=== PATIENT | female | born 1985 | race Caucasian/White ===

== ENCOUNTER 2019-12-01 16:11 | Outpatient (REF) | payer BC, SELFPAY ==
[2019-12-01 20:01] LABS: Calculated LDL 106 mg/dL; Cholesterol 187 mg/dL (<200); Glucose 85 mg/dL (74-106); HDL Cholesterol 50 mg/dL (40-60); Triglyceride 156 mg/dL (<150)
== END 2019-12-01 16:31 ==
LOC: NCHCN 16:11
PROVIDERS: PCP Family Medicine; Visit Provider Family Medicine
DX: Z00.00 Encounter for general adult medical examination without abnormal findings (principal); Z13.1 Encounter for screening for diabetes mellitus; Z13.220 Encounter for screening for lipoid disorders
CPT/HCPCS: 80061; 82947

== ENCOUNTER 2019-12-28 09:12 | Outpatient (CLI) | payer BC, SELFPAY ==
--- NOTE | 2019-12-28 14:02 | DI.MAMMO_ITS ---
EXAM: MG MAMMO DIAGNOSTIC BI, US BREAST RT LIMITED AND US BREAST LT LIMITED CLINICAL HISTORY: RT BREAST NODULE TECHNIQUE: Ultrasound performed using standard protocol. COMPARISON: SURVEY*(P) from 10/15/2010 US BREAST LT LIMITED from 12/28/2019 FINDINGS: Bilateral mammogram with an additional spot compression view of the right breast and bilateral breast ultrasound was performed. Mammography shows a well-circumscribed upper-outer quadrant mass of right breast, which measures abou t 3 cm in greatest diameter. This corresponds to a septated cyst seen ultrasonographically in the 9 o'clock position 3 cm from the nipple measuring up to about 2.4 cm in diameter. No other mass identified in the right breast. No mass identified in the left breast mammographically . An area of questionable palpable abnormality of the left breast was interrogated ultrasonographica lly. There is a 7 millimeter in diameter simple cyst corresponding to the palpable abnormality. No ultrasonographically identified solid mass of the left breast. IMPRESSION: No specific evidence of malignancy at this time. Routine screening examinations suggested beginning at age 40 unless there is breast symptomatology in the intervening period. Category 1, breast densit y category C.
== END 2019-12-28 09:32 ==
PROVIDERS: PCP Family Medicine; Visit Provider Family Medicine
DX: N63.11 Unspecified lump in the right breast, upper outer quadrant (principal); N60.01 Solitary cyst of right breast; N60.02 Solitary cyst of left breast
CPT/HCPCS: 76642; 77062; 77066; G0279

== ENCOUNTER 2020-12-19 17:24 | Outpatient (REF) | payer BC, SELFPAY ==
--- NOTE | 2020-12-19 16:00 | PAPFT_PTH ---
PATIENT: Catherine Garcia [facility] U[facility][id number] AGE/SX: 34/F ROOM: RE12/19/[address]: Nona Ruano V : 1985 BED: DIS: 12/19/2020 SPEC #: [id number] RECD: 12/20/20 12:55 STATUS: SHERITA CHAUDHARI #: [id number] CORNEL: 12/19/20 16:[address]: Nona Ruano V DEPT: [facility] Cytology RECD BY: Maura Franklin Tissues: 1 - CX/ENDOCX FOR PAP SMEARS Procedures: PAP THIN PREP/[facility] Screening HPV DNA PROBE Comments: [id number]
== END 2020-12-19 17:44 ==
LOC: NCHCN 17:24
PROVIDERS: PCP Family Medicine; Visit Provider Family Medicine
DX: Z12.4 Encounter for screening for malignant neoplasm of cervix (principal); Z11.51 Encounter for screening for human papillomavirus (HPV); Z01.419 Encounter for gynecological examination (general) (routine) without abnormal findings
CPT/HCPCS: 88142; 87624

== ENCOUNTER → 2024-06-02 00:06 | Outpatient (CLI) | payer BC, SELFPAY ==
--- NOTE | 2024-06-02 | DI.MAMMO_ITS ---
Exam(s) MAMMO SCREENING EXAM: MAMMO SCREENING CLINICAL HISTORY: Screening, Z12.31 TECHNIQUE: Mammograms were interpreted according to the usual protocol including computer analysis w EDUon[employer] CAD system, tomosynthesis and C-view imaging. COMPARISON: 2019 FINDINGS: The breasts are composed of heterogeneously dense fibroglandular densities, Breast Density category C . No suspicious masses or suspicious microcalcifications are seen. No skin thickening or abnormal axillary lymph nodes are seen. Previously noted cyst in the upper outer quadrant of the right breast no longer visible. IMPRESSION: BI-RADS Category 1, Negative mammogram. Yearly screening mammography is recommended. Breast Density Category C, heterogeneously Dense. The mammogram demonstrates the patient's breast tissue is dense. Dense breast tissue is very common a nd is not abnormal but dense breast tissue can make it harder to find cancer on a mammogram. Also, de nse breast tissue may increase breast cancer risk. This information about the result of the mammogram report was provided to the patient to raise their awareness. Use this report when you speak with the patient about their risks for breast cancer, which includes their family history. At that time, you may recommend additional screening tests (Ultrasound or MRI) as they might be useful based on their r isk. A negative radiographic report should not delay biopsy if a dominant or clinically suspicious mass is present. Up to ten percent of cancers are not identified on mammography. A negative report may reinforce clinical impression. Adenosis and dense breasts may obscure an underlying neoplasm. False positive reports average 6 to 10%.
--- OUTSIDE RECORDS SUMMARY | 2024-06-02 00:08 | XMS_ITS | Encounter Summary ---
Author Organization [facility] Address [address] [place] [address] Care Team Providers Care Insurance Advisor Name Role Phone Linda Modi PA-C Primary Care Provider + Encounter Details Date Type Department Care Team (Late st Contact Info) Description 08/12/2010 Results Only [facility] - [facility] ([facility]) [address], [place] [id number] Allan Mathew [address] [place], [place] [address] Social History Tobacco Use Types Packs/Day Years Used Date Smoking Tobacco: Never Assessed Sex and Gender Information Value Date Recorded Sex Assigned at Not on file Gender Identity Not on file Sexual Orientation Not on file documented as of this encounter Plan of Treatment Not on file documented as of this encounter Procedures Procedure Name Priority Date/Time Associated Diagnosis Comments CYTOPATHOLOGY Routine 08/12/2010 0:00 EDT documented in this encounter Results * CYTOPATHOLOGY (08/12/2010 0:00 EDT) Pathology Report: CYTOPATHOLOGY REPORT ? Reports generated via electronic interface contain original data; ? however they are lacking the format of the original report. ? Caution should be taken when reading/interpreti ng unformatted reports. ? Name: ? CAMILA GARCIA ? Accession #: ? [id number] ? : ? 1985 (Age: 24) ??F ?Collect Date: ? 08/12/2010 ? Location: ? [facility] ? Receive Date: ? 08/13/2010 ? Provider: ?ANEA LELONG CNM ? Copy to: ? Specimen/Source: ?Pap Test, Cervix/Endocervix, ThinPrep Imaging System ? with manual evaluation ? Last Menstrual Period: ? 07/19/10 ? Menstrual/Pregnanc y Status: ? Other: ? HPVA - HPV testing requested if ASC-US on the current ThinPrep Pap test. ? SPECIMEN ADEQUACY ? Satisfactory for Evaluation ? - transformation zone component present ? - scant squamous epithelial component secondary to excessive blood ? GENERAL CATEGORIZATION ? Negative for Intraepithelial Lesion or Malignancy ? Document reviewed and electronically signed by: ? Angeles Quijanog, CT(ASCP) ? Report Date: ??08/20/2010 12:39 ? End of Report ? [facility] 08/12/2010 08/13/2010 Allan Mathew CNM PATHOLOGY ORDERABLES Performing Organization Address City/State/[facility] Co de Phone Number [facility] [address] [place] [address] documented in this encounter Visit Diagnoses Not on filedocumented in this encounter Care Teams Insurance Advisor Relationship Specialty Start Date End Date Linda Modi, G[employer] [address] [place] [phone] PCP - General 08/13/10 documented as of this encounter
--- OUTSIDE RECORDS SUMMARY | 2024-06-02 00:08 | XMS_ITS | Encounter Summary ---
Author Organization [facility] Address [address] [place] [address] Care Team Providers Care Mine Administrator Supervisor Name Role Phone Anna Johnson PA-C Primary Care Provider + Encounter Details Date Type Department Care Team (Late st Contact Info) Description 06/23/2016 Results Only [facility] [phone] Anna Johnson PA-C [address] [place] [phone] Social History Tobacco Use Types Packs/Day Years Used Date Smoking Tobacco: Never Assessed Sex and Gender Information Value Date Recorded Sex Assigned at Not on file Gender Identity Not on file Sexual Orientation Not on file documented as of this encounter Plan of Treatment Not on file documented as of this encounter Procedures Procedure Name Priority Date/Time Associated Diagnosis Comments PAP TEST- RESULT ONLY Routine 06/23/2016 0:00 EDT documented in this encounter Results * PAP TEST- RESULT ONLY (06/23/2016 0:00 EDT) Pathology Report: CYTOPATHOLOGY REPORT Reports generated via electronic interface contain original data; however they are lacking the format of the original report. Caution should be taken when reading/interpreti ng unformatted reports. Name: ? CAMILA GARCIA ? Accession #: ? [id number] ? : ? 1985 (Age: 30) ??F ?Collect Date: ? 06/23/2016 ? Location: ? [facility] ? Receive Date: ? 06/24/2016 ? Provider: ANNA JOHNSON PA-C Copy to: ? Final Report SPECIMEN ADEQUACY ? Satisfactory for Evaluation - transformation zone component present GENERAL CATEGORIZATION ? Negative for Intraepithelial Lesion or Malignancy ?? Last Menstrual Period: 05/30/2016 Previous Gynecologic Pathology: ASC-US: HX Specimen/Source: ??Pap Test, Cervix/Endocervix, ThinPrep Imaging System with manual evaluation Document reviewed and electronically signed by: ? June Rodas, CT(ASCP)(IAC) ? Report ??Date: 07/01/2016 13:18 HPV with Pap Test ? Date Ordered: ? 07/01/2016 ? Status: ?? Signed Out ?Date Complete: ? 07/03/2016 ? By: ??System Interface ? Date Reported: ? 07/03/2016 ? Interpretation RESULT: Negative for HPV. No E6 or E7 mRNA is detected from HPV types 16,18,31,33,35, 39,45,51,52,56,58, 59,66, and 68 by grounds crew supervisor mediated amplification. Comments Document reviewed and electronically signed by: ? System Interface ? Report date: 07/03/2016 By the signature above, the attending physician certifies that he/she has personally conducted a gross and/or microscopic examination of the described specimens and rendered or confirmed the above diagnosis. End of Report [facility] 06/23/2016 06/24/2016 Anna Johnson PA-C PATHOLOGY [facility] [address] [place] [address] documented in this encounter Visit Diagnoses Not on filedocumented in this encounter Care Teams Mine Administrator Supervisor Relationship Specialty Start Date End Date Anna Johnson PA-C [address] [place] [phone] PCP - General 08/13/10 documented as of this encounter
--- OUTSIDE RECORDS SUMMARY | 2024-06-02 00:08 | XMS_ITS | Encounter Summary ---
Author Organization [facility] Address [address] [place] [address] Care Team Providers Care Linen Supply Load Builder Name Role Phone Linda Modi PA-C Primary Care Provider + Encounter Details Date Type Department Care Team (Late st Contact Info) Description 02/27/2005 Results Only [facility] - [facility] [address] [place] [address] Nona Ruano MD [address] [place], [place] [phone] Social History Tobacco Use Types Packs/Day Years Used Date Smoking Tobacco: Never Assessed Sex and Gender Information Value Date Recorded Sex Assigned at Not on file Gender Identity Not on file Sexual Orientation Not on file documented as of this encounter Plan of Treatment Not on file documented as of this encounter Procedures Procedure Name Priority Date/Time Associated Diagnosis Comments CYTOPATHOLOGY Routine 02/27/2005 0:00 EDT documented in this encounter Results * CYTOPATHOLOGY (02/27/2005 0:00 EDT) Pathology Report: CYTOPATHOLOGY REPORT Reports generated via electronic interface contain original data; however they are lacking the format of the original report. Caution should be taken when reading/interpreti ng unformatted reports. Name: ? CAMILA GARCIA ? Accession #: ? [id number] : ? 1985 (Age: 19) ??F ?Collect Date: ? 02/27/2005 Location: ? [facility] ? Receive Date: ? 03/03/2005 Provider: ?NONA RUANO MD Copy to: ? Specimen/Source: ?ThinPrep Pap Test, Cervix/Endocervix Last Menstrual Period: ? 02/16/05 ? SPECIMEN ADEQUACY ? Satisfactory for Evaluation - transformation zone component present GENERAL CATEGORIZATION ? Negative for Intraepithelial Lesion or Malignancy INTERPRETATION ? Reactive cellular changes associated with inflammation present (includes repair). ? Document reviewed and electronically signed by: ? ANGELINA BONNER MD ? Report Date: ??03/10/2005 13:05 End of Report [facility] 02/27/2005 03/03/2005 Nona Ruano MD PATHOLOGY ORDERABLES Performing Organization Address City/State/[facility] Co de Phone Number [facility] [address] [place] [address] documented in this encounter Visit Diagnoses Not on filedocumented in this encounter Care Teams Linen Supply Load Builder Relationship Specialty Start Date End Date Linda Modi PA-C [address] [place] [phone] PCP - General 08/13/10 documented as of this encounter
--- OUTSIDE RECORDS SUMMARY | 2024-06-02 00:08 | XMS_ITS | Encounter Summary ---
Author Organization [facility] Address [address] [place] [address] Care Team Providers Care Community Development Specialist Name Role Phone Unavailable Primary Care Provider Unavailabl e Encounter Details Date Type Department Care Team (Late st Contact Info) Description 10/20/2007 Results Only [facility] - Maple conversion [address] [place] [address] Blayne Rowan MD [facility] [address] [place], [place] [phone] Social History Tobacco Use Types Packs/Day Years Used Date Smoking Tobacco: Never Assessed Sex and Gender Information Value Date Recorded Sex Assigned at Not on file Gender Identity Not on file Sexual Orientation Not on file documented as of this encounter Plan of Treatment Not on file documented as of this encounter Procedures Procedure Name Priority Date/Time Associated Diagnosis Comments CYTOPATHOLOGY Routine 10/20/2007 0:00 EST documented in this encounter Results * CYTOPATHOLOGY (10/20/2007 0:00 EST) Pathology Report: CYTOPATHOLOGY REPORT Reports generated via electronic interface contain original data; however they are lacking the format of the original report. Caution should be taken when reading/interpreti ng unformatted reports. Name: ? CAMILA DUPONT ? Accession #: ? [id number] : ? 1985 (Age: 21) ??F ?Collect Date: ? 10/20/2007 Location: ? [facility] ? Receive Date: ? 10/21/2007 Provider: ?BLAYNE ROWAN MD Copy to: ? Specimen/Source: ?ThinPrep Pap Test, Cervix/Endocervix, processed on [employer] ThinPrep Imaging System, with manual evaluation Last Menstrual Period: ? 1 wk ago Hormonal/Contracep tive Status: ? Depo-Provera Previous Gynecologic Pathology: ? Yes: 2005 sq cell abnormality undetermine signifance, neg HPV Other: ? HPVA - HPV testing requested if ASC-US on the current ThinPrep Pap test. ? SPECIMEN ADEQUACY ? Satisfactory for Evaluation - transformation zone component present GENERAL CATEGORIZATION ? Negative for Intraepithelial Lesion or Malignancy ? Document reviewed and electronically signed by: ? ENMANUEL Warren(ASCP) ? Report Date: ??10/25/2007 12:18 End of Report [facility] 10/20/2007 10/21/2007 Blayne Rowan MD PATHOLOGY ORDERABLES Performing Organization Address City/State/[facility] Co de Phone Number [facility] [address] [place] [address] documented in this encounter Visit Diagnoses Not on filedocumented in this encounter
--- OUTSIDE RECORDS SUMMARY | 2024-06-02 00:08 | XMS_ITS | Encounter Summary ---
Author Organization [facility] Address [address] [place] [address] Care Team Providers Care Vacation Sales Advisor Name Role Phone Unavailable Primary Care Provider Unavailabl e Encounter Details Date Type Department Care Team (Late st Contact Info) Description 01/11/2003 Results Only [facility] - Maple conversion [address] [place] [address] [facility] [address] [place] [address] [place] [address] Social History Tobacco Use Types Packs/Day Years Used Date Smoking Tobacco: Never Assessed Sex and Gender Information Value Date Recorded Sex Assigned at Not on file Gender Identity Not on file Sexual Orientation Not on file documented as of this encounter Plan of Treatment Not on file documented as of this encounter Procedures Procedure Name Priority Date/Time Associated Diagnosis Comments CYTOPATHOLOGY Routine 01/11/2003 0:00 EST documented in this encounter Results * CYTOPATHOLOGY (01/11/2003 0:00 EST) Pathology Report: CYTOPATHOLOGY REPORT Reports generated via electronic interface contain original data; however they are lacking the format of the original report. Caution should be taken when reading/interpreti ng unformatted reports. Name: ? CAMILA DUPONT ? Accession #: ? [id number] : ? 1985 (Age: 17) ??F ?Collect Date: ? 01/11/2003 Location: ? [facility] ? Receive Date: ? 01/15/2003 Provider: ?PRUDENCE MENEZES SAP PI DEVELOPER Copy to: ? Specimen/Source: ?ThinPrep Pap Test, Cervix/Endocervix Last Menstrual Period: ? Hormonal/Contracep tive Status: ? Depo-Provera ? SPECIMEN ADEQUACY ? Satisfactory for Evaluation - transformation zone component present GENERAL CATEGORIZATION ? Negative for Intraepithelial Lesion or Malignancy ? Document reviewed and electronically signed by: ? ENMANUEL Dooley(ASCP) ? Report Date: ??01/16/2003 14:48 End of Report [facility] 01/11/2003 01/15/2003 Prudence Menezes SAP PI DEVELOPER PATHOLOGY ORDERABLES [facility] [address] [place] [address] documented in this encounter Visit Diagnoses Not on filedocumented in this encounter
--- OUTSIDE RECORDS SUMMARY | 2024-06-02 00:08 | XMS_ITS | Encounter Summary ---
Author Organization [facility] Address [address] [place] [address] Care Team Providers Care Shipping And Receiving Material Handler Name Role Phone Linda Modi PA-C Primary Care Provider + Encounter Details Date Type Department Care Team (Latest Contact Info) Description 12/23/2020 Lab Requisition [facility] Pathology & Laboratory Medicine - [facility] [address] [place] [address] Nona Ruano MD [address] [place], [place] [phone] Encounter for gynecological examination (general) (routine) without abnormal findings Social History Tobacco Use Types Packs/Day Years Used Date Smoking Tobacco: Never Assessed Sex and Gender Information Value Date Recorded Sex Assigned at Not on file Gender Identity Not on file Sexual Orientation Not on file documented as of this encounter Plan of Treatment Not on file documented as of this encounter Procedures Procedure Name Priority Date/Time Associated Diagnosis Comments PAP TEST Today 12/19/2020 16:00 EST Encounter for gynecological examination (general) (routine) without abnormal findings HPV DNA DETECTION WITH GENOTYPING, PCR Today 12/19/2020 16:00 EST Encounter for gynecological examination (general) (routine) without abnormal findings documented in this encounter Results * HUMAN PAPILLOMAVIRUS (HPV) DETECTION-HIGH RISK TYPES (12/19/2020 16:00 EST) HPV other High Risk types, PCR Negative Negative 01/01/2021 15:12 EST [facility] Comment:No E6 or E7 mRNA is detected from HPV types 16,18,31,33,35,39,45,51,52,56,58,59,66, and 68 by swing saw operator mediated amplification. Papanicolaou smear specimen (specimen) CERVIX UTERI STRUCTURE / Unknown 12/19/2020 16:00 EST 12/30/2020 13:05 EST Nona Ruano MD MICROBIOLOGY - GENER AL ORDERABLES [facility] [address] [place] [phone] * PAP TEST (12/19/2020 16:00 EST) Specimens A. Cervix and/or Endocervix , ThinPrep Imaging System with Manual Evaluation 01/01/2021 15:12 [facility] Specimen Adequacy Satisfactory for Evaluation - transformation zone component present 01/01/2021 15:12 [facility] General Categorization Negative for intraepithelial lesion or malignancy 01/01/2021 15:12 [facility] Attestation . 01/01/2021 15:12 [facility] at 1512 Clinical History See below 01/01/20 21 15:12 [facility] HPV The result for the Human Papillomavirus (HPV) Detection-High Risk Types is Negative. No E6 or E7 mRNA is detected from HPV types 16,18,31,33,35,39 ,45,51,52,56,58,5 9,66, and 68 by swing saw operator mediated amplification.Nette ting was performed on specimen [id number] and was resulted on 01/01/2021 1506 EST by JONATHAN, LAB INSTRUMENT RESULTS IN 01/01/2021 15:12 [facility] Performing Lab [facility] 01/01/2021 15:12 [facility] Scanned Images 01/01/2021 15:12 [facility] Papanicolaou smear specimen (specimen) CERVIX UTERI STRUCTURE / Unknown 12/19/2020 16:00 EST 12/23/2020 15:00 EST Nona Ruano MD PATHOLOGY ORDERABLES [facility] [address] [place] [address] documented in this encounter Visit Diagnoses Diagnosis Encounter for gynecological examination (general) (routine) without abnormal findings documented in this encounter Care Teams Shipping And Receiving Material Handler Relationship Specialty Start Date End Date Linda Modi PA-C [address] [place] [phone] PCP - General 08/13/10 documented as of this encounter
--- OUTSIDE RECORDS SUMMARY | 2024-06-02 00:08 | XMS_ITS | Referral Summary ---
Author Organization [facility] Address [address] [place] [address] Care Team Providers Care Cadmium Burner Name Role Phone Linda Modi PA-C Primary Care Provider + Social History Tobacco Use Types Packs/Day Years Used Date Smoking Tobacco: Never Assessed Sex and Gender Information Value Date Recorded Sex Assigned at Not on file Gender Identity Not on file Sexual Orientation Not on file Plan of Treatment Not on file Care Teams Cadmium Burner Relationship Specialty Start Date End Date Linda Modi PA-C [address] [place] [phone] PCP - General 08/13/10
--- OUTSIDE RECORDS SUMMARY | 2024-06-02 00:08 | XMS_ITS | Encounter Summary ---
Author Organization [facility] Address [address] [place] [address] Care Team Providers Care Product Analyst Name Role Phone Unavailable Primary Care Provider Unavailabl e Encounter Details Date Type Department Care Team (Late st Contact Info) Description 09/09/2006 Results Only [facility] - Maple conversion [address] [place] [address] Nona Ruano MD [address] [place], [place] [phone] Social History Tobacco Use Types Packs/Day Years Used Date Smoking Tobacco: Never Assessed Sex and Gender Information Value Date Recorded Sex Assigned at Not on file Gender Identity Not on file Sexual Orientation Not on file documented as of this encounter Plan of Treatment Not on file documented as of this encounter Procedures Procedure Name Priority Date/Time Associated Diagnosis Comments CYTOPATHOLOGY Routine 09/09/2006 0:00 EDT documented in this encounter Results * CYTOPATHOLOGY (09/09/2006 0:00 EDT) Pathology Report: CYTOPATHOLOGY REPORT Reports generated via electronic interface contain original data; however they are lacking the format of the original report. Caution should be taken when reading/interpreti ng unformatted reports. Name: ? CAMILA DUPONT ? Accession #: ? [id number] : ? 1985 (Age: 20) ??F ?Collect Date: ? 09/09/2006 Location: ? [facility] ? Receive Date: ? 09/13/2006 Provider: ?NONA RUANO MD Copy to: ? Specimen/Source: ?ThinPrep Pap Test, Cervix/Endocervix, processed on [employer] ThinPrep Imaging System, with manual evaluation Last Menstrual Period: ? 05/10/06 Menstrual/Pregnanc y Status: ? Other: ? Additional clinical information: 03/17/06 sq cell abnormality, atypical sq cell undetermined sign neg HPV ? SPECIMEN ADEQUACY ? Satisfactory for Evaluation - transformation zone component present GENERAL CATEGORIZATION ? Negative for Intraepithelial Lesion or Malignancy INTERPRETATION ? Fungal organisms present morphologically consistent with Sherry species. ? Document reviewed and electronically signed by: ? ENMANUEL Mejia(ASCP) ? Report Date: ??09/16/2006 11:23 End of Report [facility] 09/09/2006 09/13/2006 Nona Ruano MD PATHOLOGY ORDERABLES Performing Organization Address City/State/[facility] Co de Phone Number [facility] [address] [place] [address] documented in this encounter Visit Diagnoses Not on filedocumented in this encounter
--- OUTSIDE RECORDS SUMMARY | 2024-06-02 00:08 | XMS_ITS | Encounter Summary ---
Author Organization [facility] Address [address] [place] [address] Care Team Providers Care Head Of Geography Name Role Phone Linda Modi PA-C Primary Care Provider + Encounter Details Date Type Department Care Team (Late st Contact Info) Description 06/06/2013 Results Only [facility] Laboratory Services - [facility] ([facility] [place]) [address] [place] [id number] Nona Ruano MD [address] [place], [place] [id number] Social History Tobacco Use Types Packs/Day Years [...] Diagnosis Comments PAP TEST- RESULT ONLY Routine 06/06/2013 0:00 EDT documented in this encounter Results * PAP TEST- RESULT ONLY (06/06/2013 0:00 EDT) Pathology Report: CYTOPATHOLOGY REPORT Reports generated via electronic interface contain original data; however they are lacking the format of the original report. Caution should be taken when reading/interpreti ng unformatted reports. Name: ? CAMILA GARCIA ? Accession #: ? [id number] : ? 1985 (Age: 27) ??F ?Collect Date: ? 06/06/2013 Location: ? [facility] ? Receive Date: ? 06/07/2013 Provider: ?NONA RUANO MD Copy to: ? Specimen/Source: ?Pap Test, Cervix/Endocervix, ThinPrep Imaging System with manual evaluation Last Menstrual Period: ? 1 week ago Previous Gynecologic Pathology: ? Yes: atypical squamous cells 2006. Normal since. HPV negative 2006. ? SPECIMEN ADEQUACY ? Satisfactory for Evaluation - transformation zone component present GENERAL CATEGORIZATION ? Negative for Intraepithelial Lesion or Malignancy INTERPRETATION ? Reactive cellular changes associated with inflammation present (includes repair). ? Document reviewed and electronically signed by: ? SURESH BLAKE MD ? Report Date: ??06/16/2013 10:57 End of Report [facility] 06/06/2013 06/07/2013 Nona Ruano MD PATHOLOGY ORDERABLES Performing Organization Address City/State/[facility] Co de Phone Number [facility] [address] [place] [address] documented in this encounter Visit Diagnoses Not on filedocumented in this encounter Care Teams Head Of Geography Relationship Specialty Start Date End Date Linda Modi PA-C [address] [place] [phone] PCP - General 08/13/10 documented as of this encounter
--- OUTSIDE RECORDS SUMMARY | 2024-06-02 00:08 | XMS_ITS | Encounter Summary ---
Author Organization [facility] Address [address] [place] [address] Care Team Providers Care Plating Inspector Name Role Phone Unavailable Primary Care Provider Unavailabl e Encounter Details Date Type Department Care Team (Late st Contact Info) Description 02/18/2004 Results Only [facility] - Maple conversion [address] [place] [address] [facility] [address] [place] [address] [place] [address] Social History Tobacco Use Types [...] Priority Date/Time Associated Diagnosis Comments CYTOPATHOLOGY Routine 02/18/2004 0:00 EST documented in this encounter Results * CYTOPATHOLOGY (02/18/2004 0:00 EST) Pathology Report: CYTOPATHOLOGY REPORT Reports generated via electronic interface contain original data; however they are lacking the format of the original report. Caution should be taken when reading/interpreti ng unformatted reports. Name: ? CAMILA DUPONT ? Accession #: ? [id number] : ? 1985 (Age: 18) ??F ?Collect Date: ? 02/18/2004 Location: ? [facility] ? Receive Date: ? 02/20/2004 Provider: ?PRUDENCE MENEZES WET CHEMISTRY ANALYST Copy to: ? Specimen/Source: ?ThinPrep Pap Test, Cervix/Endocervix Last Menstrual Period: ? 11/25 Hormonal/Contracep tive Status: ? Depo-Provera Other: ? HPVA - HPV testing requested if ASC-US on the current ThinPrep Pap test. ? SPECIMEN ADEQUACY ? Satisfactory for Evaluation - transformation zone component present - scant squamous epithelial component GENERAL CATEGORIZATION ? Negative for Intraepithelial Lesion or Malignancy ? Document reviewed and electronically signed by: ? ENMANUEL Warren(ASCP) ? Report Date: ??02/25/2004 10:10 End of Report [facility] 02/18/2004 02/20/2004 Prudence Menezes WET CHEMISTRY ANALYST PATHOLOGY ORDERABLES [facility] [address] [place] [address] documented in this encounter Visit Diagnoses Not on filedocumented in this encounter
--- OUTSIDE RECORDS SUMMARY | 2024-06-02 00:08 | XMS_ITS | Encounter Summary ---
Author Organization [facility] Address [address] [place] [address] Care Team Providers Care Vault Manager Name Role Phone Unavailable Primary Care Provider Unavailabl e Encounter Details Date Type Department Care Team (Late st Contact Info) Description 03/17/2006 Results Only [facility] - Maple conversion [address] [place] [address] Anna Modi PA-C [address] [place] [address] Social History Tobacco Use Types Packs/Day Years Used Date Smoking Tobacco: Never Assessed Sex and Gender Information Value Date Recorded Sex Assigned at Not on file Gender Identity Not on file Sexual Orientation Not on file documented as of this encounter Plan of Treatment Not on file documented as of this encounter Procedures Procedure Name Priority Date/Time Associated Diagnosis Comments HPV DETECTION, HIGH RISK TYPES Routine 03/17/2006 11:45 EDT CYTOPATHOLOGY Routine 03/17/2006 0:00 EDT documented in this encounter Results * HUMAN PAPILLOMA VIRUS DNA TEST (03/17/2006 11:45 EDT) Specimen Description Cervix, ThinPrep vial [facility] Result Negative for HPV types 16, 18, 31, 33, 35, 39, 45, 51, 52, 56, 58, 59, and 68. [facility] Report Status Final [id number] [facility] 03/17/2006 11:4 5 EDT 03/26/2006 11:45 EDT Anna Modi PA-C MICROBIOLOGY - G ENERAL ORDERABLES [facility] [address] [place] [address] * CYTOPATHOLOGY (03/17/2006 0:00 EDT) Pathology Report: CYTOPATHOLOGY REPORT Reports generated via electronic interface contain original data; however they are lacking the format of the original report. Caution should be taken when reading/interpreti ng unformatted reports. Name: ? CAMILA SCHMIDT ? Accession #: ? [id number] : ? 1985 (Age: 20) ??F ?Collect Date: ? 03/17/2006 Location: ? [facility] ? Receive Date: ? 03/19/2006 Provider: ?ANNA ORTIZ Copy to: ? Specimen/Source: ?ThinPrep Pap Test, Cervix/Endocervix, processed on [employer] ThinPrep Imaging System, with manual evaluation Last Menstrual Period: ? 03/12/06 Other: ? HPVA - HPV testing requested if ASC-US on the current ThinPrep Pap test. ? SPECIMEN ADEQUACY ? Satisfactory for Evaluation - transformation zone component present GENERAL CATEGORIZATION ? Epithelial Cell Abnormality INTERPRETATION ? Squamous Cell Abnormality - Atypical squamous cells, undetermined significance. EDUCATIONAL NOTES/RECOMMENDATI ONS ? [facility] recommends following the 2001 Consensus Guidelines for the Management of Women with Cervical Cytological Abnormalities (CHU,2002;287:212 0-9). Management algorithms have been distributed by [facility] and are available online at www.ASCCP.org. ? Document reviewed and electronically signed by: ? HELGA ANTHONY MD ? Report Date: ??03/25/2006 16:23 End of Report [facility] 03/17/2006 03/19/2006 Anna Modi PA-C PATHOLOGY [facility] [address] [place] [address] documented in this encounter Visit Diagnoses Not on filedocumented in this encounter
--- OUTSIDE RECORDS SUMMARY | 2024-06-02 00:08 | XMS_ITS | Clinical Summary ---
Author Organization [facility] Address [address] [place] [address] Care Team Providers Care Manager Cath Lab Name Role Phone Linda Modi PA-C Primary Care Provider + Social History Tobacco Use Types Packs/Day Years Used Date Smoking Tobacco: Never Assessed Sex and Gender Information Value Date Recorded Sex Assigned at Not on file Gender Identity Not on file Sexual Orientation Not on file Plan of Treatment Health Maintenance Due Date Last Done Comments Hepatitis C Screen 1985 Hepatitis B Vaccine (1 of 3 - 19+ 3-dose series) 12/25 COVID-19 Vaccine ( season) 2023 Care Teams Manager Cath Lab Relationship Specialty Start Date End Date iLnda Modi PA-C [address] [place] [phone] PCP - General 08/13/10
== END ==
PROVIDERS: PCP Family Medicine; Visit Provider Family Medicine
DX: Z12.31 Encounter for screening mammogram for malignant neoplasm of breast (principal); R92.333 Mammographic heterogeneous density, bilateral breasts
CPT/HCPCS: 77063; 77067

== ENCOUNTER 2025-08-10 02:13 | Outpatient (CLI) | payer BC, SELFPAY ==
--- NOTE | 2025-08-10 | DI.MAMMO_ITS ---
Exam(s) MAMMO SCREENING EXAM: MAMMO SCREENING CLINICAL HISTORY: SCREENING MAMMO Z12.31 TECHNIQUE: Bilateral full field digital CC and MLO mammographic images were obtained with 3D tomosynthesis and utilizing computer aided detection (CAD). COMPARISON: Comparison is made with prior examinations. FINDINGS: Masses/Architectural Distortion: There are new bilateral breast nodules. There are 2 nodule seen in the retroareolar region of the left breast and a new nodule in the upper outer quadrant of the right breast 5 cm from the nipple. There are no areas of architectural distortion. Microcalcifications: No suspicious pleomorphic-type are seen. Skin Thickening/Nipple Retraction: None. IMPRESSION: 1. New bilateral breast nodules. 2. These area should be further evaluated with spot compression views. Bilateral breast ultrasound should be obtained at that time. BI-RADS Category 0 - Incomplete: Need additional imaging evaluation Breast Density - Category C - The breast are heterogeneously dense, which may obscure small masses. Breast density Category C or D implies that the patient has dense breast tissue. Dense breast tissue can make it harder to find cancer on a mammogram. Dense breast tissue is also associated with an increased risk of breast cancer. This information about the result of the mammogram report was provided to the patient to raise their awareness. Use this report when you speak with the patient about their risks for breast cancer, which includes their family history. At that time, you may recommend additional screening tests (Ultrasound or MRI) as these tests may add significant information. A negative radiographic report should not delay biopsy if a dominant or clinically suspicious mass is present. Up to ten percent of cancers are not identified on mammography. A negative report may reinforce clinical impression. Adenosis and dense breasts may obscure an underlying neoplasm. False positive reports average 6 to 10%. Patient will receive a letter notifying them of these results.
== END 2025-08-10 02:33 ==
PROVIDERS: PCP Family Medicine; Visit Provider Family Medicine
DX: Z12.31 Encounter for screening mammogram for malignant neoplasm of breast (principal)
CPT/HCPCS: 77063; 77067

== ENCOUNTER 2025-08-21 02:12 | Outpatient (CLI) | payer BC, SELFPAY ==
--- NOTE | 2025-08-21 | DI.US_ITS ---
Exam(s) US BREAST LT COMPLETE US BREAST RT COMPLETE MG MAMMO SCREEN CALL BACK BI EXAM: MG MAMMO SCREEN CALL BACK BI AND BILATERAL COMPLETE BREAST ULTRASOUND CLINICAL HISTORY: BILAT BREAST NODULES R92.8 ABNL MAMMO. TECHNIQUE: BILATERAL spot mammographic images obtained with 3D tomosynthesisand utilizing computer aided detection (CAD). . Complete BILATERAL breast Ultrasound was also performed, including all 4 quadrants, the retroareolar region, and the ipsilateral axilla. COMPARISON: Prior mammograms were reviewed. This additional imaging was performed due to findings described on the recent screening mammogram of 08/10/2025. FINDINGS: DIAGNOSTIC MAMMOGRAM: Additional mammographic views performed todaydo not dissipate the recently described bilateral nodules. Proceeded to ultrasound. COMPLETE BILATERAL BREAST ULTRASOUND: Right breast ultrasound: The nodule at the 10 o'clock position on the mammogram corresponds to a 16 x 9 mm cyst. There are also a few smaller cysts evident but no solid lesions seen in all 4 quadrants. Scanning of the ipsilateral axilla reveals no significant adenopathy. Left breast ultrasound: The 2 nodules described on the recent mammogram correspond to to adjacent cysts at the 12 o'clock position with the larger measuring 20 x 15 mm There is also another small 4 mm microcyst at 12 o'clock position. There are no solid lesions seen in all 4 quadrants. Scanning of the ipsilateral axilla reveals no significant adenopathy. IMPRESSION: 1. Bilateral nodules which correspond to benign cysts in both breasts on today's bilateral complete breast ultrasound. There are no solid solid components within these cysts and there are no solid lesions seen in either breast. 2. No significant axillary adenopathy. Appropriate follow-up is repeat bilateral breast imaging in 6 months, with earlier imaging a new self detected breast change is noted.. The patient was informed of these findings and recommendations by myself prior to leaving the department today. BI-RADS Category 3 - 6 month - Probably Benign Finding: Recommend follow-up mammography and ultrasound in 6 months Breast Density - Category C - The breast are heterogeneously dense, which may obscure small masses. Breast density Category C or D implies that the patient has dense breast tissue. Dense breast tissue can make it harder to find cancer on a mammogram. Dense breast tissue is also associated with an increased risk of breast cancer. This information about the result of the mammogram report was provided to the patient to raise their awareness. Use this report when you speak with the patient about their risks for breast cancer, which includes their family history. At that time, you may recommend additional screening tests (Ultrasound or MRI) as these tests may add significant information. A negative radiographic report should not delay biopsy if a dominant or clinically suspicious mass is present. Up to ten percent of cancers are not identified on mammography. A negative report may reinforce clinical impression. Adenosis and dense breasts may obscure an underlying neoplasm. False positive reports average 6 to 10%. Patient will receive a letter notifying them of these results.
== END 2025-08-21 02:32 ==
LOC: DI 02:12
PROVIDERS: PCP Family Medicine; Visit Provider Family Medicine
DX: Z12.31 Encounter for screening mammogram for malignant neoplasm of breast (principal); R92.8 Other abnormal and inconclusive findings on diagnostic imaging of breast
CPT/HCPCS: 76642; 77063; 77067